=== PATIENT | female | born 1935 | race Caucasian/White ===

== ENCOUNTER 2017-06-04 13:19 | Emergency (ER) | payer MEDICARE, OTHER ==
[2017-06-04 14:54] LABS: BILIRUBIN,URINE NEGATIVE (NEGATIVE)
[2017-06-04 14:55] LABS: UA w/ MICROSCOPIC CHARGE YES
[2017-06-04 15:06] LABS: UR CULTURE IF IND NOT INDICATED; WBC,URINE >25 /HPF (0-5)
--- NOTE | 2017-06-04 15:57 | ED Physician Documentation ---
History of Present Illness - Stated complaint Stated Complaint: GLF - Chief complaint Chief Complaint: Ext Problem - Additonal information Additional information: Pleasant 81-year-old female who had a mechanical fall last night. She was bending forward when she fell over striking her head against the table. There is no loss of consciousness and she has no amnesia about the event. She injured her left holiness, left ear and most significantly her left lateral hip area which is discolored and painful to walk on. She has been ambulatory using a walker. Her daughter made her come in for evaluation today. Medically everything appears to be doing fine but when asked about urinary symptoms they did mention that she has a more or less chronic or recurrent urinary tract infection. She has no urinary symptoms. She also had a little bit of neck pain tonight as well she denies any neurologic symptoms or pain or injury to the chest or abdomen or other extremities. Review of systems: For pertinent positive and negatives in the review of systems please see history of present illness. Otherwise all other systems have been reviewed and are negative. Dragon disclaimer: Parts of this medical record were created using voice recognition technology. Because of the inherent limitations of this system occasional same sounding word substitutions do occur and persist despite proofreading. Please read the document for context. Review of Systems Ten Systems: 10 systems reviewed and negative Constitutional: denies: Fever, Chills, Myalgias Eyes: denies: Loss of vision, Decreased vision, Photophobia Ears: denies: Loss of hearing Cardiac: denies: Chest pain / pressure, Palpitations GI: denies: Abdominal Pain, Abdominal Swelling, Nausea, Vomiting : denies: Dysuria, Hesitancy Musculoskeletal: reports: Neck pain, Back pain PD PAST MEDICAL HISTORY - Past Medical History Past Medical History: Yes Cardiovascular: Hypertension, High cholesterol GI: GERD - Past Surgical History Past Surgical History: Yes General: Cholecystectomy, Appendectomy - Present Medications Home Medications: Ambulatory Orders Medication Instructions Recorded Confirmed Acetaminophen [Tylenol Arthritis] 650 mg PO DAILY PM 06/04/17 06/04/17 Aspirin 81 mg PO DAILY 06/04/17 06/04/17 HYDROcod/ACETAM 5/325 [[place] 5/325] 1 - 2 ea PO Q6H PRN #20 tablet 06/04/17 Metoprolol Tartrate 0 mg PO DAILY 06/04/17 06/04/17 Nitrofurantoin Monohyd/M-Cryst 100 mg PO BID #14 capsule 06/04/17 [Macrobid 100 mg Capsule] Omeprazole [PriLOSEC] 20 mg PO DAILY 06/04/17 06/04/17 - Allergies Allergies/Adverse Reactions: Allergies Allergy/AdvReac Type Severity Reaction Status Date / Time Sulfa (Sulfonamide Allergy Unknown Verified 06/04/17 13:30 Antibiotics) - Social History Does the pt smoke?: No Smoking Status: Never smoker Does the pt drink ETOH?: Yes Does the pt have substance abuse?: No - POLST Patient has POLST: No PD ED PE NORMAL - Vitals Vital signs reviewed: Yes - General General: Alert and oriented X 3, No acute distress, Well developed/nourished, Other (Small bruise contusion noted to the left ear without hematoma. Small area of bruising over the left zygoma without any obvious deformity) - HEENT HEENT: PERRL, EOMI, Pharynx benign - Neck Neck: Supple, no meningeal sign, No JVD - Cardiac Cardiac: RRR, No murmur, No gallop - Respiratory Respiratory: No respiratory distress, Clear bilaterally - Abdomen Abdomen: Normal bowel sounds, Soft, Non tender, Non distended - Derm Derm: Normal color, Warm and dry - Extremities Extremities: No deformity, No tenderness to palpate, Normal ROM s pain - Neuro Neuro: Alert and oriented X 3, No motor deficit, No sensory deficit - Psych Psych: Normal mood, Normal affect Results - Vitals Vitals: Vital Signs - 24 hr 06/04/17 06/04/17 06/04/17 13:26 15:59 17:59 Temperature 36.7 C Heart Rate 46 L 52 L 51 L Respiratory 18 18 18 Rate Blood Pressure 217/77 H 240/90 H 205/72 H O2 Saturation 98 100 95 06/04/17 18:13 Temperature 36.9 C Heart Rate Respiratory Rate Blood Pressure O2 Saturation Oxygen O2 Source Room air - Labs Labs: Laboratory Tests 06/04/17 14:45 Urine Color DARK YELLOW Urine Clarity SL. CLOUDY Urine pH 6.0 Ur Specific [place] 1.020 Urine Protein 100 H Urine Glucose (UA) NEGATIVE Urine Ketones NEGATIVE Urine Occult Blood LARGE H Urine Nitrite POSITIVE H Urine Bilirubin NEGATIVE Urine Urobilinogen 0.2 (NORMAL) Ur Leukocyte Esterase TRACE H Urine RBC TNTC H Urine WBC >25 H Ur Squamous Epith Cells MANY Squamous H Urine Bacteria Few Ur Microscopic Review INDICATED Urine Culture Comments NOT INDICATED PD MEDICAL DECISION MAKING - ED course Complexity details: reviewed old records, reviewed results, re-evaluated patient ED course: Patient is a 81-year-old female who had a mechanical fall last night. She presents with a contusion to her face ear and most notably her left hip. On range of motion testing of the left hip it functions normally. I thought less likely she had a hip fracture. A CT scan of the head, neck, and pelvis was done. There were multiple abnormalities on the CT of her pelvis including a nondisplaced fracture of the left sacral art superior and inferior ramus. These results were discussed with radiology and also orthopedics. We feel this represents ramus fracture is not acetabular fractures. The treatment recommendation is weightbearing as tolerated and pain medications. The patient also has a urinary tract infection which will be treated she is asymptomatic for toe put her on a course of Macrodantin. Patient will be discharged home at this time in improved condition Clinical impression: 1. Left sacral art fracture 2. Inferior and superior ramus fractures Without displacement 3. Urinary tract infection Departure - Departure Clinical Impression: UTI (urinary tract infection) Bilateral pubic rami fractures Qualifiers: Encounter type: initial encounter Fracture type: closed Qualified Code(s): S32.591A - Other specified fracture of right pubis, initial encounter for closed fracture; S32.592A - Other specified fracture of left pubis, initial encounter for closed fracture Condition: Good Instructions: ED Fx Pelvis, ED UTI Cystitis Female Follow-Up: NAYLA LAWSON [Primary Care Provider] - Macy Conteh MD [Provider Admit Priv/Credential] - Prescriptions: Nitrofurantoin Monohyd/M-Cryst [Macrobid 100 mg Capsule] 100 mg PO BID #14 capsule HYDROcod/ACETAM 5/325 [[place] 5/325] 1 - 2 ea PO Q6H PRN #20 tablet PRN Reason: Pain
--- NOTE | 2017-06-04 16:15 | CT Report ---
EXAM: CT HEAD EXAM DATE: 06/04/2017 03:43 PM. CLINICAL HISTORY: Fall. Left hindu bruising. COMPARISON: None. TECHNIQUE: Multiaxial CT images were obtained from the foramen magnum to the vertex. IV contrast: Non e. Reformats: Coronal. In accordance with CT protocol optimization, one or more of the following dose reduction techniques w ere utilized for this exam: automated exposure control, adjustment of mA and/or KV based on patient s ize, or use of iterative reconstructive technique. FINDINGS: Parenchyma: No intraparenchymal hemorrhage. No evidence of mass, midline shift, or CT findings of inf arction. Tran-white differentiation is distinct. Extraaxial Spaces: Normal for age. No subdural or epidural collections identified. Ventricles: Normal in size and position. Sinuses: Imaged paranasal sinuses, orbits, and mastoids show no significant abnormality. Bones: No evidence of fracture or calvarial defect. Other: None. IMPRESSION: Normal head CT. [facility] Referring Provider Line: [phone] SITE ID: [id number]
--- NOTE | 2017-06-04 16:18 | CT Report ---
EXAM: CT CERVICAL SPINE WITHOUT CONTRAST DATE: 06/04/2017 03:43 PM HISTORY: Fall. Head injury. Neck pain. COMPARISONS: None. TECHNIQUE: Thin-section axial images were acquired of the cervical spine without contrast. Post-proce ssing: Coronal and sagittal reformats. Other: None. In accordance with CT protocol optimization, one or more of the following dose reduction techniques w ere utilized for this exam: automated exposure control, adjustment of mA and/or KV based on patient s ize, or use of iterative reconstructive technique. FINDINGS: Alignment: Normal. No scoliosis or spondylolisthesis. Bones: No fracture or bone lesion. Interspace Levels/Facets: Disk space is preserved. Anterior degenerative changes at C1-C2. Multilevel facet arthropathy. Other: The paravertebral and prevertebral soft tissues are normal. The lung apices are clear. IMPRESSION: No acute cervical spine abnormalities. [facility] Referring Provider Line: [phone] SITE ID: [id number]
--- NOTE | 2017-06-04 16:18 | CT Report ---
EXAM: CT BONY PELVIS WITHOUT CONTRAST EXAM DATE: 06/04/2017 03:44 PM. CLINICAL HISTORY: Fell yesterday. Left hip pain. Lateral bruising over the greater trochanter. COMPARISON: None. TECHNIQUE: Thin-section axial images were acquired of the pelvis without contrast. Post-processing: C oronal and sagittal reformats. Other: None. In accordance with CT protocol optimization, one or more of the following dose reduction techniques w ere utilized for this exam: automated exposure control, adjustment of mA and/or KV based on patient s ize, or use of iterative reconstructive technique. FINDINGS: Bones and articular surfaces: Mild bilateral hip joint space narrowing. Tiny bilateral femoral head m arginal osteophyte formation. Sacroiliac joints appear symmetric and unremarkable. Pubic symphysis un remarkable. Nondisplaced zone 2 fracture of the left sacral ala. Nondisplaced fracture at the medial aspect of the left superior pubic ramus which may extend to the inferior ramus adjacent to the symphy sis. No femoral fracture identified. Soft tissues: Subcutaneous soft tissue edema lateral to the left greater trochanter. Musculotendinous structures appear intact. Mild patchy atrophy within the gluteus musculature. Miscellaneous: Sigmoid diverticulosis without diverticulitis. No pathologic lymphadenopathy. IMPRESSION: 1. Nondisplaced fracture of the left sacral ala. 2. Nondisplaced fracture involving the medial aspect of the left superior pubic ramus, possibly exten ding into the inferior ramus adjacent to the symphysis. 3. Mild bilateral hip osteophyte is 4. Diverticulosis without diverticulitis. [facility] Referring Provider Line: [phone] SITE ID: [id number]
[2017-06-04] MEDS ORDERED: oxyCOD/ACETAMIN 5 MG/325 MG TABLET PO STA (16:20)
[2017-06-04] MEDS ORDERED: levoFLOXacin 250 MG TABLET PO STA (16:20)
[2017-06-04] MEDS ORDERED: oxyCOD/ACETAMIN 5 MG/325 MG TABLET PO ONE (16:24)
[2017-06-04] MEDS ORDERED: levoFLOXacin 250 MG TABLET ONE (16:25)
[2017-06-04 18:00] VITALS: BP 205/72
== END 2017-06-04 18:44 | disposition home or self-care (01) ==
LOC: ED 13:19
DX: S32.10XA Unspecified fracture of sacrum, initial encounter for closed fracture (principal); S32.512A Fracture of superior rim of left pubis, initial encounter for closed fracture; W18.30XA Fall on same level, unspecified, initial encounter; W22.09XA Striking against other stationary object, initial encounter; I10 Essential (primary) hypertension
CPT/HCPCS: 70450; 72125; 72192; 81001; 99283; 99284; A9270; 81003; 87086

== ENCOUNTER 2017-07-24 09:36 | Outpatient (CLI) | payer MEDICARE, OTHER ==
--- NOTE | 2017-07-24 10:56 | CT Report ---
CT PELVIS WITHOUT CONTRAST: 07/24/2017 CLINICAL INDICATION: Left hip fracture. TECHNIQUE: Axial CT images of the pelvis were obtained without intravenous contrast. Sagittal and c oronal reconstructions were performed. COMPARISON: 06/04/2017 FINDINGS: There is no evidence of a proximal femoral fracture on either side. There are subacute, h ealing fractures of the left superior and inferior pubic rami and left sacrum, with callus formation at all three sites. No right pelvic fracture is appreciated. The visualized pelvic contents appear unremarkable. IMPRESSION: SUBACUTE FRACTURES OF THE LEFT SACRUM, LEFT SUPERIOR AND INFERIOR PUBIC RAMI, WITH CALLU S FORMATION. NO EVIDENCE OF LEFT HIP FRACTURE. In accordance with CT protocol optimization, one or more of the following dose reduction techniques w ere utilized for this exam: automated exposure control, adjustment of mA and/or KV based on patient size, or use of iterative reconstructive technique. JOB #: [id number] EXT JOB #:[id number]
== END 2017-07-24 09:37 | disposition home or self-care (01) ==
LOC: DI 09:36
PROVIDERS: ATTEND Specialist
DX: S32.10XD Unspecified fracture of sacrum, subsequent encounter for fracture with routine healing (principal); S32.592D Other specified fracture of left pubis, subsequent encounter for fracture with routine healing
CPT/HCPCS: 72192

== ENCOUNTER 2018-10-19 15:39 | Outpatient (CLI) | payer MEDICARE, OTHER ==
[2018-10-19 18:16] LABS: BASOPHILS # (AUTO) 0.1 10^3/uL (0.0-0.1); BASOPHILS % (AUTO) 0.7 %; EOSINOPHILS # (AUTO) 0.4 10^3/uL (0.0-0.7); HGB - HEMOGLOBIN 13.1 g/dL (12.0-16.0); LYMPHOCYTES # (AUTO) 2.5 10^3/uL (1.5-3.5); LYMPHOCYTES % (AUTO) 28.9 %; MEAN CORPUSCULAR HEMOGLOBIN 30.5 pg (27.0-31.0); MEAN CORPUSCULAR HGB CONC 34.3 g/dL (32.0-36.0); MEAN CORPUSCULAR VOLUME 88.7 fL (81.0-99.0); MEAN PLATELET VOLUME 8.4 fL (7.9-10.8); MONOCYTES # (AUTO) 0.6 10^3/uL (0.0-1.0); MONOCYTES % (AUTO) 7.2 %; NEUTROPHILS # (AUTO) 5.1 10^3/uL (1.5-6.6); NEUTROPHILS % (AUTO) 58.2 %; PLT - PLATELET COUNT 232 10^3/uL (130-450); RED CELL DISTRIBUTION WIDTH 14.3 % (12.0-15.0); WHITE BLOOD COUNT 8.8 x10^3/uL (4.8-10.8)
[2018-10-19 18:33] LABS: BILIRUBIN,URINE NEGATIVE (NEGATIVE); GLUCOSE, URINE (UA) NEGATIVE (NEGATIVE); KETONES,URINE (UA) NEGATIVE (NEGATIVE); LEUKOCYTE ESTERASE, URINE MODERATE (NEGATIVE); NITRITE,URINE NEGATIVE (NEGATIVE); OCCULT BLOOD,URINE LARGE (NEGATIVE); PROTEIN,URINE 30 mg/dL (NEGATIVE); UROBILINOGEN,URINE 0.2 (NORMAL) E.U./dL (NORMAL)
[2018-10-19 18:35] LABS: ALBUMIN 4.2 g/dL (3.2-5.5); ALBUMIN/GLOBULIN RATIO 1.4 (1.0-2.2); BILIRUBIN,TOTAL 0.7 mg/dL (0.2-1.0); CALCIUM 10.6 mg/dL (8.5-10.3); CREATININE 1.2 mg/dL (0.4-1.0); TOTAL PROTEIN 7.1 g/dL (6.7-8.2)
[2018-10-19 18:55] LABS: CLARITY,URINE CLOUDY (CLEAR)
[2018-10-19 19:06] LABS: BACTERIA,URINE Many /HPF (None Seen); RBC,URINE TNTC /HPF (0-5); SQUAMOUS EPITHELIAL CELL,UR RARE Squamous (<= Few); WBC CLUMPS,URINE PRESENT
== END 2018-10-19 15:40 | disposition home or self-care (01) ==
LOC: LAB.F 15:39
PROVIDERS: ATTEND Specialist
DX: I10 Essential (primary) hypertension (principal); N39.0 Urinary tract infection, site not specified; E78.5 Hyperlipidemia, unspecified; R00.1 Bradycardia, unspecified
CPT/HCPCS: 36415; 80053; 81001; 81003; 83880; 85025

== ENCOUNTER 2019-06-15 19:40 | Emergency (ER) | payer MEDICARE, OTHER ==
[2019-06-15] MEDS ORDERED: diphenhydrAMINE 25 MG CAPSULE PO STA (19:54)
[2019-06-15] MEDS ORDERED: predniSONE 20 MG TABLET PO STA (19:54)
[2019-06-15] MEDS ORDERED: EPINEPHrine 1 MG/ML AMP IM STA (19:54)
--- NOTE | 2019-06-15 19:56 | ED Physician Documentation ---
PD HPI SKIN - Stated complaint Stated Complaint: ALLERGIC REAC - Chief complaint Chief Complaint: Allergic Rx - History obtained from History obtained from: Patient, Family - History of Present Illness Timing - onset: Today (She took her first dose of Cipro at about 5 PM and shortly thereafter developed diffuse itching and lip swelling and a sore throat.) Review of Systems Constitutional: denies: Fever, Chills Nose: denies: Rhinorrhea / runny nose Throat: reports: Sore throat Respiratory: denies: Dyspnea, Cough PD PAST MEDICAL HISTORY - Past Medical History Cardiovascular: Hypertension, High cholesterol GI: GERD - Past Surgical History Past Surgical History: Yes General: Cholecystectomy, Appendectomy - Present Medications Home Medications: Ambulatory Orders Medication Instructions Recorded Confirmed Acetaminophen [Tylenol Arthritis] 650 mg PO DAILY PM 06/04/17 06/04/17 Aspirin 81 mg PO DAILY 06/04/17 06/04/17 HYDROcod/ACETAM 5/325 [[place] 5/325] 1 - 2 ea PO Q6H PRN #20 tablet 06/04/17 Metoprolol Tartrate 0 mg PO DAILY 06/04/17 06/04/17 Nitrofurantoin Monohyd/M-Cryst 100 mg PO BID #14 capsule 06/04/17 [Macrobid 100 mg Capsule] Omeprazole [PriLOSEC] 20 mg PO DAILY 06/04/17 06/04/17 EPINEPHrine [Epinephrine] 0.3 mg IJ ONCE PRN #2 auto.injct 06/15/19 predniSONE [Deltasone] 60 mg PO DAILY 5 Days tablet 06/15/19 - Allergies Allergies/Adverse Reactions: Allergies Allergy/AdvReac Type Severity Reaction Status Date / Time ciprofloxacin Allergy Anaphylaxis Verified 06/15/19 20:00 Sulfa (Sulfonamide Allergy Unknown Verified 06/15/19 19:46 Antibiotics) - Social History Does the pt smoke?: No Smoking Status: Never smoker Does the pt drink ETOH?: Yes Does the pt have substance abuse?: No - POLST Patient has POLST: No PD ED PE NORMAL - Vitals Vital signs reviewed: Yes - General General: Alert and oriented X 3, No acute distress - HEENT HEENT: Other (She has modest bilateral conjunctivitis, pretty significant angioedema of the upper and lower lips and mild angioedema under the tongue but nothing occlusive. No wheezing or shortness of breath. Normal voice.) - Neck Neck: Supple, no meningeal sign, No bony TTP - Cardiac Cardiac: RRR, No murmur - Respiratory Respiratory: No respiratory distress, Clear bilaterally - Abdomen Abdomen: Non tender - Derm Derm: No rash - Neuro Neuro: Alert and oriented X 3, Normal speech Results - Vitals Vitals: Vital Signs - 24 hr 06/15/19 06/15/19 06/15/19 19:43 20:16 20:50 Temperature 35.8 C L Heart Rate 47 L 52 L 53 L Respiratory 19 23 18 Rate Blood Pressure 201/97 H 218/99 H 218/99 H O2 Saturation 97 98 99 06/15/19 06/15/19 06/15/19 21:16 21:30 22:05 Temperature Heart Rate 49 L 47 L 46 L Respiratory 15 20 14 Rate Blood Pressure 206/76 H 212/72 H 206/76 H O2 Saturation 97 92 93 Oxygen O2 Source Room air PD MEDICAL DECISION MAKING - ED course ED course: 83-year-old woman with moderate anaphylaxis after first dose of Cipro today with improvement and near resolution after epinephrine IM here and also administered steroids and Benadryl. She was observed for several hours for recurrence without evidence of such. Departure - Departure Disposition: 01 Home, Self Care Clinical Impression: Anaphylaxis Qualifiers: Encounter type: initial encounter Qualified Code(s): T78.2XXA - Anaphylactic shock, unspecified, initial encounter Instructions: ED Drug React Allergic Prescriptions: EPINEPHrine [Epinephrine] 0.3 mg IJ ONCE PRN #2 auto.injct PRN Reason: Allergy Symptoms predniSONE [Deltasone] 60 mg PO DAILY 5 Days tablet Comments: Call your urologist office tomorrow to discuss an alternative antibiotic to ciprofloxacin or sulfa given the reaction you had today. Do not ever take ciprofloxacin again. Your blood pressure was elevated today on check into the emergency department. This does not mean that you have hypertension, it is a common phenomenon to come to the emergency department and have elevated blood pressure. I recommend that you see your primary care physician within the week to have it rechecked when you are feeling better. Call your doctor to arrange a follow-up appointment, make the next available appointment. In the interim, return anytime if worse or if new symptoms develop.
[2019-06-15] MEDS ORDERED: EPINEPHrine 1 MG/ML AMP ONE (19:57)
[2019-06-15 22:50] VITALS: BP 213/85
== END 2019-06-15 23:01 | disposition home or self-care (01) ==
LOC: ED 19:40
DX: T88.6XXA Anaphylactic reaction due to adverse effect of correct drug or medicament properly administered, initial encounter (principal); T36.8X5A Adverse effect of other systemic antibiotics, initial encounter; H10.9 Unspecified conjunctivitis; I10 Essential (primary) hypertension; Z79.82 Long term (current) use of aspirin
CPT/HCPCS: 96372; 99283; A9270; J7512

== ENCOUNTER 2019-08-26 10:47 | Outpatient (CLI) | payer MEDICARE, OTHER ==
[2019-08-26 11:13] LABS: BASOPHILS # (AUTO) 0.1 10^3/uL (0.0-0.1); BASOPHILS % (AUTO) 0.8 %; EOSINOPHILS # (AUTO) 0.6 10^3/uL (0.0-0.7); EOSINOPHILS % (AUTO) 7.6 %; HGB - HEMOGLOBIN 12.2 g/dL (12.0-16.0); LYMPHOCYTES # (AUTO) 2.1 10^3/uL (1.5-3.5); LYMPHOCYTES % (AUTO) 27.6 %; MEAN CORPUSCULAR HEMOGLOBIN 29.9 pg (27.0-31.0); MEAN CORPUSCULAR HGB CONC 33.6 g/dL (32.0-36.0); MEAN PLATELET VOLUME 9.1 fL (7.9-10.8); MONOCYTES # (AUTO) 0.8 10^3/uL (0.0-1.0); MONOCYTES % (AUTO) 9.8 %; NEUTROPHILS # (AUTO) 4.2 10^3/uL (1.5-6.6); NEUTROPHILS % (AUTO) 53.7 %; PLT - PLATELET COUNT 213 10^3/uL (130-450); RED BLOOD COUNT 4.08 10^6/uL (4.20-5.40); RED CELL DISTRIBUTION WIDTH 13.8 % (12.0-15.0); WHITE BLOOD COUNT 7.8 x10^3/uL (4.8-10.8)
[2019-08-26 11:31] LABS: ALBUMIN 3.9 g/dL (3.2-5.5); ALBUMIN/GLOBULIN RATIO 1.3 (1.0-2.2); ALKALINE PHOSPHATASE 52 IU/L (42-121); ALT ALANINE AMINOTRANSFERASE 14 IU/L (10-60); AST ASPARTATE AMINOTRANSFERASE 17 IU/L (10-42); BILIRUBIN,TOTAL 0.7 mg/dL (0.2-1.0); BUN - BLOOD UREA NITROGEN 34 mg/dL (6-20); CALCIUM 10.4 mg/dL (8.5-10.3); CARBON DIOXIDE - CO2 26 mmol/L (21-32); CHLORIDE 104 mmol/L (101-111); CHOL/HDL RATIO 3.9 (<4.4); CHOLESTEROL 216 mg/dL; CREATININE 1.1 mg/dL (0.4-1.0); GFR - MDRD 48 (>89); GLUCOSE 128 mg/dL (70-100); HDL CHOLESTEROL 56 mg/dL; HEMOGLOBIN A1C 0.53 g/dL; HEMOGLOBIN A1C % 5.9 % (4.6-6.2); LDL CHOLESTEROL,CALCULATED 132 mg/dL; LDL/HDL RATIO 2.4 (<4.4); SODIUM 140 mmol/L (135-145); VLDL CHOLESTEROL 28 mg/dL
== END 2019-08-26 10:48 | disposition home or self-care (01) ==
LOC: LAB 10:47
PROVIDERS: ATTEND Specialist
DX: I10 Essential (primary) hypertension (principal); N39.0 Urinary tract infection, site not specified; Z79.899 Other long term (current) drug therapy
CPT/HCPCS: 36415; 80053; 80061; 83036; 83721; 85025

== ENCOUNTER 2019-08-30 11:05 | Outpatient (CLI) | payer MEDICARE, OTHER ==
[2019-08-30] MEDS ORDERED: IOVERSOL 320 100 ML VIAL IVP ONE ×2 (11:21→13:37)
--- NOTE | 2019-09-01 08:05 | CT Report ---
Reason: RECURRENT UTI Procedure Date: 08/30/2019 Accession Number: [id number] / [id number] Procedure: CT - IVP CPT Code: FULL RESULT: EXAM: CT ABDOMEN AND PELVIS WITHOUT AND WITH CONTRAST (CT IVP) EXAM DATE: 08/30/2019 12:24 PM. CLINICAL HISTORY: RECURRENT UTI. COMPARISONS: PELVIS W/O 07/24/2017 10:07 AM. TECHNIQUE: Routine helical imaging was performed through the kidneys, ureters and bladder in the precontrast, postcontrast delayed phase. IV Contrast: 100 cc Optiray 320. Reconstructions: Coronal and sagittal. In accordance with CT protocol optimization, one or more of the following dose reduction techniques were utilized for this exam: automated exposure control, adjustment of mA and/or KV based on patient size, or use of iterative reconstructive technique. FINDINGS: Lung Bases: Bilateral lower lung nodules largest measuring up to 8 mm. Coronary artery calcifications. Small hiatal hernia. Liver: Normal. No masses. Gallbladder/Bile Ducts: Unremarkable. Spleen: Normal. Pancreas: Normal. Adrenal Glands: Normal. Kidneys/Bladder: Right Kidney/Ureter: No renal or ureteral stones. No hydronephrosis or hydroureter. Right kidney 1.6 cm cyst with thin septation. Left Kidney/Ureter: No renal or ureteral stones. No hydronephrosis or hydroureter. Left kidney 7 mm low density superior pole too small to characterize. Bladder: No stones. No wall thickening or mass. Peritoneal Cavity/Bowel: Diverticulosis No free fluid, free air or adenopathy. No masses or acute inflammatory process. Pelvic Organs: Visualized pelvic organs are unremarkable. Vasculature: No aneurysms or other significant abnormality. Bones: Previous left pubis, left sacral fractures. DJD spine. Grade 1 anterolisthesis L4 and L5. Other: None. IMPRESSION: 1. Right kidney 1.8 cm cyst with thin septation Bosniak 2 benign. 2. Left kidney 7 mm density too small to characterize. 3. Multiple lung nodules, largest [address] [facility]
== END 2019-08-30 11:06 | disposition home or self-care (01) ==
LOC: DI 11:05
PROVIDERS: ATTEND Urology
DX: N39.0 Urinary tract infection, site not specified (principal); Q61.01 Congenital single renal cyst; R91.8 Other nonspecific abnormal finding of lung field
CPT/HCPCS: 74178; Q9967

== ENCOUNTER 2020-01-23 12:53 | Outpatient (CLI) | payer MEDICARE, OTHER ==
[2020-01-23 17:32] LABS: ALBUMIN 4.2 g/dL (3.2-5.5); ALBUMIN/GLOBULIN RATIO 1.5 (1.0-2.2); ALKALINE PHOSPHATASE 48 IU/L (42-121); ALT ALANINE AMINOTRANSFERASE 16 IU/L (10-60); AST ASPARTATE AMINOTRANSFERASE 18 IU/L (10-42); BILIRUBIN,TOTAL 0.9 mg/dL (0.2-1.0); BUN - BLOOD UREA NITROGEN 35 mg/dL (6-20); CALCIUM 10.9 mg/dL (8.5-10.3); CARBON DIOXIDE - CO2 28 mmol/L (21-32); CHLORIDE 103 mmol/L (101-111); CHOL/HDL RATIO 3.8 (<4.4); CHOLESTEROL 246 mg/dL; CREATININE 1.1 mg/dL (0.4-1.0); GFR - MDRD 48 (>89); GLUCOSE 119 mg/dL (70-100); HDL CHOLESTEROL 65 mg/dL; LDL CHOLESTEROL,CALCULATED 149 mg/dL; LDL/HDL RATIO 2.3 (<4.4); SODIUM 140 mmol/L (135-145); VLDL CHOLESTEROL 32 mg/dL
== END 2020-01-23 12:54 | disposition home or self-care (01) ==
LOC: LAB.S 12:53
PROVIDERS: ATTEND Internal Medicine
DX: E78.5 Hyperlipidemia, unspecified (principal); E03.9 Hypothyroidism, unspecified
CPT/HCPCS: 36415; 80053; 80061; 83721; 84443

== ENCOUNTER 2020-05-10 13:47 | Outpatient (CLI) | payer MEDICARE, OTHER | END 2020-05-10 13:48 | disposition home or self-care (01) | LOC: RT 13:47 | PROVIDERS: ATTEND Internal Medicine Cardiovascular Disease | DX: I10 Essential (primary) hypertension (principal) | CPT/HCPCS: 93005 ==

== ENCOUNTER 2020-09-14 10:38 | Emergency (ER) | payer MEDICARE, OTHER ==
[2020-09-14 10:47] VITALS: BP 136/69
--- NOTE | 2020-09-14 11:12 | ED Physician Documentation ---
PD HPI LOWER EXT INJURY - Stated complaint Stated Complaint: RT FOOT INJ - Chief complaint Chief Complaint: Ext Problem - History obtained from History obtained from: Patient - History of Present Illness PD HPI LOW EXT INJURY LOCATION: Right, Ankle, Foot Type of injury: Twist (she rolled foot while walking down stairs, with inversion of foot and onset of pain dorsally. Today with swelling and bruising at 3rd MTP and on bottom of foot.) Where injury occurred: Home Timing - onset: Yesterday Timing - details: Abrupt onset Review of Systems Constitutional: denies: Fever, Chills Nose: denies: Rhinorrhea / runny nose, Congestion Throat: denies: Sore throat Respiratory: denies: Cough GI: denies: Nausea, Vomiting, Diarrhea Skin: denies: Abrasion (s), Laceration (s) Musculoskeletal: reports: Extremity swelling (right foot) Neurologic: denies: Focal weakness, Numbness PD PAST MEDICAL HISTORY - Past Medical History Cardiovascular: Hypertension, High cholesterol Respiratory: None Neuro: Headaches Endocrine/Autoimmune: HyPOthyroidism GI: [employer] REP: None : Chronic bladder infection, Other HEENT: None Psych: None Derm: None - Past Surgical History Past Surgical History: Yes General: Cholecystectomy, Appendectomy - Present Medications Home Medications: Ambulatory Orders Medication Instructions Recorded Confirmed Aspirin 81 mg PO DAILY 06/04/17 07/11/20 Omeprazole [PriLOSEC] 20 mg PO DAILY 06/04/17 07/11/20 EPINEPHrine [Epinephrine] 0.3 mg IJ ONCE PRN #2 auto.injct 06/15/19 07/11/20 Levothyroxine Sodium 0 mcg PO DAILY 07/11/20 07/11/20 Naproxen 375 mg PO TID #30 tablet 07/11/20 Sertraline [Zoloft] 0 mg PO DAILY 07/11/20 07/11/20 Simvastatin 20 mg PO DAILY PM 07/11/20 07/11/20 amLODIPine [Norvasc] 5 mg PO DAILY 07/11/20 07/11/20 hydroCHLOROthiazide 25 mg PO DAILY 07/11/20 07/11/20 [Hydrochlorothiazide] Estrogen Vaginal Cream 09/14/20 Oxybutynin [Ditropan] 1 tab 09/14/20 - Allergies Allergies/Adverse Reactions: Allergies Allergy/AdvReac Type Severity Reaction Status Date / Time ciprofloxacin Allergy Anaphylaxis Verified 09/14/20 10:47 Sulfa (Sulfonamide Allergy Unknown Verified 09/14/20 10:47 Antibiotics) - Social History Does the pt smoke?: No Smoking Status: Never smoker Does the pt drink ETOH?: Yes Does the pt have substance abuse?: No - Immunizations Immunizations are current?: Yes - POLST Patient has POLST: No PD ED PE NORMAL - Vitals Vital signs reviewed: Yes - General General: Alert and oriented X 3, No acute distress, Well developed/nourished - Derm Derm: Normal color, Warm and dry - Extremities Extremities: No edema, Other (dorsum right foot near 3rd MT head and MTP with swelling and bruising, tender. Some bruising plantar MT head. Normal color and cap refill in toes. No edema of the toes. ) - Neuro Neuro: Alert and oriented X 3, No motor deficit, No sensory deficit, Normal speech Results - Vitals Vitals: Vital Signs - 24 hr 09/14/20 10:44 Temperature 36.7 C Heart Rate 58 L Respiratory 16 Rate Blood Pressure 136/69 H O2 Saturation 98 Oxygen O2 Source Room air - Rads (name of study) right foot Radiology: Prelim report reviewed (no fractures), See rad report PD MEDICAL DECISION MAKING - ED course Complexity details: reviewed results, re-evaluated patient, considered differential, d/w patient Departure - Departure Disposition: 01 Home, Self Care Clinical Impression: Foot sprain Qualifiers: Encounter type: initial encounter Laterality: right Qualified Code(s): S93.601A - Unspecified sprain of right foot, initial encounter Condition: Stable Record reviewed to determine appropriate education?: Yes Instructions: ED Sprain Foot Follow-Up: Camden Kenney MD [Primary Care Provider] - Comments: Does not show any fractures. The radiology report agrees with that. You can still have injury there with sprain of the muscles and ligaments. I would anticipate improvement over the next few days with the swelling to go down. Firm soled shoe to reduce foot motion with walking. Elevate rest and Raudel wrap can help as well to reduce swelling. Consider anti-inflammatories such as some naproxen or ibuprofen 1 or 2 tablets twice daily over the next several days to a week. To that add Tylenol 4 times a day for the next few days as well. Recheck if not improved well over the next several days to a week. Discharge Date/Time: 09/14/20 12:00
[2020-09-14] MEDS ORDERED: NAPROXEN 250 MG TABLET PO STA (11:19)
[2020-09-14] MEDS ORDERED: ACETAMINOPHEN 325 MG TABLET PO STA (11:19)
--- NOTE | 2020-09-14 11:20 | XRAY Report ---
PROCEDURE: Foot 3 View RT INDICATIONS: Trauma TECHNIQUE: 3 views of the foot were acquired. COMPARISON: None FINDINGS: Bones: No fractures or dislocations. Mild midfoot and forefoot joint osteoarthritic changes are see n more prominent at first MTP joint. No suspicious bony lesions. Soft tissues: No tibiotalar joint effusion. Achilles tendon appears normal. IMPRESSION: No gross acute right foot fracture or dislocation. Right foot osteoarthritis. Reviewed by: Sina Nicholson MD on 09/14/2020 10:19 AM [facility] Approved by: Sina Nicholson MD on 09/14/2020 10:19 AM [facility] Station ID: [id number]
== END 2020-09-14 12:00 | disposition home or self-care (01) ==
LOC: ED 10:38
DX: S93.601A Unspecified sprain of right foot, initial encounter (principal); S90.31XA Contusion of right foot, initial encounter; X50.1XXA Overexertion from prolonged static or awkward postures, initial encounter; Y93.01 Activity, walking, marching and hiking; Y92.009 Unspecified place in unspecified non-institutional (private) residence as the place of occurrence of the external cause; M19.071 Primary osteoarthritis, right ankle and foot; I10 Essential (primary) hypertension; Z79.82 Long term (current) use of aspirin
CPT/HCPCS: 73630; 99283; A9270

== ENCOUNTER 2021-01-29 15:41 | Outpatient (CLI) | payer MEDICARE, OTHER ==
--- NOTE | 2021-01-29 16:20 | XRAY Report ---
PROCEDURE: Lumbar Spine 2 View INDICATIONS: LOWER BACK PAIN TECHNIQUE: 2 views of the lumbar spine were acquired. COMPARISON: None. FINDINGS: Bones: 5 [id number] vertebrae are present. There is grade 1 anterolisthesis of L4 on L5. Multi level disc space narrowing and endplate osteophyte formation. Facet hypertrophy throughout the mid an d lower lumbar spine. No vertebral body compression fractures. No suspicious bony lesions. Soft tissues: Overlying bowel gas pattern is normal. No suspicious soft tissue calcifications. IMPRESSION: Multilevel degenerative disc and facet disease. No acute fracture. No osseous lesion. If symptoms and/or clinical suspicion for pathology continue, further assessment with repeat plain film s, or advanced imaging (e.g., CT, MRI, or bone scan) is recommended for further assessment. Reviewed by: Xiao Nj MD on 01/29/2021 4:19 PM PST Approved by: Xiao Nj MD on 01/29/2021 4:19 PM [facility] Station ID: [id number]
== END 2021-01-29 15:42 | disposition home or self-care (01) ==
LOC: DI 15:41
PROVIDERS: ATTEND Internal Medicine
DX: M51.37 Other intervertebral disc degeneration, lumbosacral region (principal)

== ENCOUNTER 2021-02-11 10:50 | Outpatient (CLI) | payer MEDICARE, OTHER ==
[2021-02-11 11:05] LABS: BASOPHILS # (AUTO) 0.1 10^3/uL (0.0-0.1); EOSINOPHILS # (AUTO) 0.5 10^3/uL (0.0-0.7); EOSINOPHILS % (AUTO) 6.8 %; HGB - HEMOGLOBIN 13.1 g/dL (12.0-16.0); LYMPHOCYTES % (AUTO) 27.2 %; MEAN CORPUSCULAR HEMOGLOBIN 30.2 pg (27.0-31.0); MEAN CORPUSCULAR HGB CONC 32.8 g/dL (32.0-36.0); MEAN CORPUSCULAR VOLUME 92.2 fL (81.0-99.0); MEAN PLATELET VOLUME 9.7 fL (7.9-10.8); MONOCYTES # (AUTO) 0.6 10^3/uL (0.0-1.0); MONOCYTES % (AUTO) 7.9 %; NEUTROPHILS # (AUTO) 4.1 10^3/uL (1.5-6.6); NEUTROPHILS % (AUTO) 56.8 %; PLT - PLATELET COUNT 224 10^3/uL (130-450); RED BLOOD COUNT 4.34 10^6/uL (4.20-5.40); RED CELL DISTRIBUTION WIDTH 13.6 % (12.0-15.0); WHITE BLOOD COUNT 7.2 x10^3/uL (4.8-10.8)
[2021-02-11 11:23] LABS: ALBUMIN 4.3 g/dL (3.2-5.5); ALBUMIN/GLOBULIN RATIO 1.4 (1.0-2.2); ALKALINE PHOSPHATASE 63 IU/L (42-121); ALT ALANINE AMINOTRANSFERASE 17 IU/L (10-60); AST ASPARTATE AMINOTRANSFERASE 19 IU/L (10-42); BILIRUBIN,TOTAL 1.1 mg/dL (0.2-1.0); BUN - BLOOD UREA NITROGEN 36 mg/dL (6-20); CALCIUM 10.5 mg/dL (8.5-10.3); CARBON DIOXIDE - CO2 23 mmol/L (21-32); CHLORIDE 108 mmol/L (101-111); CHOL/HDL RATIO 2.2 (<4.4); CHOLESTEROL 187 mg/dL; CREATININE 1.3 mg/dL (0.4-1.0); GFR - MDRD 39 (>89); GLUCOSE 112 mg/dL (70-100); HDL CHOLESTEROL 85 mg/dL; LDL CHOLESTEROL,CALCULATED 83 mg/dL; POTASSIUM 3.8 mmol/L (3.5-5.0); SODIUM 139 mmol/L (135-145); TOTAL PROTEIN 7.4 g/dL (6.7-8.2); TRIGLYCERIDES 93 mg/dL; VLDL CHOLESTEROL 19 mg/dL
[2021-02-11 11:39] LABS: THYROID STIMULATING HORMONE 4.22 uIU/mL (0.34-5.60)
== END 2021-02-11 10:51 | disposition home or self-care (01) ==
LOC: LAB 10:50
PROVIDERS: ATTEND Internal Medicine
DX: I10 Essential (primary) hypertension (principal); E78.5 Hyperlipidemia, unspecified; E03.9 Hypothyroidism, unspecified
CPT/HCPCS: 36415; 80053; 80061; 83721; 84443; 85025

== ENCOUNTER 2021-03-05 12:21 | Outpatient (CLI) | payer MEDICARE, OTHER ==
[2021-03-05 13:02] LABS: CALCIUM, IONIZED 1.36 mmol/L (1.15-1.33); VBG PH 7.299 (7.31-7.41)
[2021-03-05 13:07] LABS: BILIRUBIN,URINE NEGATIVE (NEGATIVE); GLUCOSE, URINE (UA) NEGATIVE (NEGATIVE); KETONES,URINE (UA) NEGATIVE (NEGATIVE); LEUKOCYTE ESTERASE, URINE LARGE (NEGATIVE); NITRITE,URINE POSITIVE (NEGATIVE); OCCULT BLOOD,URINE MODERATE (NEGATIVE); PROTEIN,URINE TRACE mg/dL (NEGATIVE); UROBILINOGEN,URINE 0.2 (NORMAL) E.U./dL (NORMAL)
[2021-03-05 13:08] LABS: CLARITY,URINE CLOUDY (CLEAR)
[2021-03-05 13:19] LABS: ALBUMIN 4.3 g/dL (3.2-5.5); ALBUMIN/GLOBULIN RATIO 1.5 (1.0-2.2); BILIRUBIN,TOTAL 0.8 mg/dL (0.2-1.0); CALCIUM 10.8 mg/dL (8.5-10.3); CREATININE 1.2 mg/dL (0.4-1.0); POTASSIUM 4.5 mmol/L (3.5-5.0); TOTAL PROTEIN 7.2 g/dL (6.7-8.2)
[2021-03-05 13:22] LABS: SQUAMOUS EPITHELIAL CELL,UR FEW Squamous (<= Few); WBC,URINE >25 /HPF (0-5)
[2021-03-05 13:23] LABS: BACTERIA,URINE Moderate /HPF (None Seen)
--- NOTE | 2021-03-05 13:50 | CT Report ---
PROCEDURE: LUMBAR SPINE WO INDICATIONS: LUMBAR RADICULOPATHY TECHNIQUE: Noncontrast 3 mm thick sections acquired from the T12 level to the sacrum. Sagittal and coronal refo rmats were constructed. For radiation dose reduction, the following was used: automated exposure co ntrol, adjustment of mA and/or kV according to patient size. COMPARISON: 07/11/2020 FINDINGS: Image quality: Excellent. Bones: No acute vertebral body compression fractures. No suspicious lytic or blastic bony lesions. Central spinal caliber is of normal overall caliber. No healed. Levoconvex scoliotic curvature is seen. Grade 1 L4-L5 anterolisthesis is seen, without associated pars defects Age-appropriate osteope fred can be seen. T12-L1: Normal in appearance. L1-L2: Normal in appearance. L2-L3: Normal in appearance. L3-L4: The disc height is relatively well preserved. Mild disc bulge is seen, with a central disc protrusion. Mild facet hypertrophy is seen. No significant neuroforaminal narrowing can be seen. Mild central canal narrowing is seen. L4-L5: Moderate loss of disc height is seen. At least moderate disc bulge is seen, with disc uncove ring. Prominent facet hypertrophy can be seen at this level. There is at least moderate bilateral odell roforaminal narrowing seen at this level. Moderate to severe central canal narrowing is seen at this level, as on series 3 image 47. These imaging findings are similar to the images of the prior examin [facility] includes the [facility]. L5-S1: The disc height is well-preserved. Mild disc bulge is seen. Mild to moderate facet hypert rophy can be seen. No significant neural foraminal or central canal narrowing can be seen. These i maging findings are stable compared to the prior examination. Soft tissues: No retroperitoneal masses or hematomas. Visualized aorta is normal in caliber. Ather osclerotic calcification is seen. Diverticulosis can be seen, without mary findings of active divert iculitis. The uterus demonstrates an unremarkable appearance for age. No adnexal masses are seen. IMPRESSION: Focal L4-L5 degenerative change seen, which is similar to the prior CT examination. Grade 1 anterolis thesis is seen at this level and there is at least moderate bilateral neuroforaminal narrowing and mo derate to severe central canal narrowing. Milder degenerative changes are seen elsewhere. Reviewed by: Liborio Botello MD on 03/05/2021 12:48 PM AKDT Approved by: Liborio Botello MD on 03/05/2021 12:48 PM AKDT Station ID: [id number]
== END 2021-03-05 12:22 | disposition home or self-care (01) ==
LOC: DI 12:21
PROVIDERS: ATTEND Internal Medicine
DX: M54.16 Radiculopathy, lumbar region (principal); M51.36 Other intervertebral disc degeneration, lumbar region; M48.061 Spinal stenosis, lumbar region without neurogenic claudication; M47.816 Spondylosis without myelopathy or radiculopathy, lumbar region; M47.817 Spondylosis without myelopathy or radiculopathy, lumbosacral region; E83.52 Hypercalcemia; M43.16 Spondylolisthesis, lumbar region
CPT/HCPCS: 36415; 80053; 81001; 81599; 82330; 83970; 87077; 87086; 87181

== ENCOUNTER 2021-06-01 12:23 | Outpatient (CLI) | payer MEDICARE, OTHER ==
--- NOTE | 2021-06-01 15:45 | Ultrasound Report ---
PROCEDURE: Retroperitoneal INDICATIONS: Recurrent UTI TECHNIQUE: Real-time scanning was performed of the kidneys and bladder, with image documentation. COMPARISON: Correlation is made with prior CT examinations, 03/05/2021, 07/11/2020 FINDINGS: Overall image quality is limited, secondary to overlying bowel gas. Kidneys: Kidneys are normal in size. Right kidney measures 9.7 cm long; left kidney measures 9.2 cm long. Right renal cortical thickness is 1.2 cm; left renal cortical thickness is 1.5 cm. No solid masses, hydronephrosis, or nephrolithiasis. At the superior pole of the right kidney, there is 2 adjacent cysts versus a septated cyst that measu re up to 1.4 centers, measured together. Within the left mid kidney, there is an 8 mm simple cyst see n. The prevoid bladder volume is 67 cc. The post void bladder volume is 39 cc. Both ureteral jets can b e seen. At the bladder base, anterior to the cervix, there is a cystic focus that measures up to 1.5 cm. IMPRESSION: No significant abnormality is seen. No hydronephrosis. Moderate post residual, 37 cc. 1.5 cm cystic structure seen at the bladder base, anterior to the cervix. The clinical significance o f this is uncertain, although it may represent a bladder diverticulum. Reviewed by: Liborio Botello MD on 06/01/2021 2:44 PM MAURILIO Approved by: Liborio Botello MD on 06/01/2021 2:44 PM MAURILIO Station ID: [id number]
== END 2021-06-01 12:24 | disposition home or self-care (01) ==
LOC: DI 12:23
PROVIDERS: ATTEND Student in an Organized Health Care Education/Training Program
DX: N39.0 Urinary tract infection, site not specified (principal)

== ENCOUNTER 2021-06-04 12:37 | Outpatient (CLI) | payer MEDICARE, OTHER ==
[2021-06-04 12:55] LABS: BASOPHILS % (AUTO) 0.5 %; EOSINOPHILS # (AUTO) 0.5 10^3/uL (0.0-0.7); EOSINOPHILS % (AUTO) 6.7 %; HCT - HEMATOCRIT 35.2 % (37.0-47.0); HGB - HEMOGLOBIN 11.9 g/dL (12.0-16.0); LYMPHOCYTES # (AUTO) 1.9 10^3/uL (1.5-3.5); LYMPHOCYTES % (AUTO) 25.5 %; MEAN CORPUSCULAR HEMOGLOBIN 30.9 pg (27.0-31.0); MEAN CORPUSCULAR HGB CONC 33.8 g/dL (32.0-36.0); MEAN CORPUSCULAR VOLUME 91.4 fL (81.0-99.0); MEAN PLATELET VOLUME 9.6 fL (7.9-10.8); MONOCYTES # (AUTO) 0.6 10^3/uL (0.0-1.0); MONOCYTES % (AUTO) 8.6 %; NEUTROPHILS # (AUTO) 4.2 10^3/uL (1.5-6.6); NEUTROPHILS % (AUTO) 58.3 %; PLT - PLATELET COUNT 194 10^3/uL (130-450); RED BLOOD COUNT 3.85 10^6/uL (4.20-5.40); RED CELL DISTRIBUTION WIDTH 13.9 % (12.0-15.0); WHITE BLOOD COUNT 7.3 x10^3/uL (4.8-10.8)
[2021-06-04 13:13] LABS: ALBUMIN 3.9 g/dL (3.2-5.5); ALBUMIN/GLOBULIN RATIO 1.3 (1.0-2.2); BILIRUBIN,TOTAL 0.6 mg/dL (0.2-1.0); CALCIUM 10.6 mg/dL (8.5-10.3); CREATININE 1.4 mg/dL (0.4-1.0); TOTAL PROTEIN 6.9 g/dL (6.7-8.2)
== END 2021-06-04 12:38 | disposition home or self-care (01) ==
LOC: LAB 12:37
PROVIDERS: ATTEND Internal Medicine
DX: I10 Essential (primary) hypertension (principal)
CPT/HCPCS: 36415; 80053; 85025